=== PATIENT | female | born 1985 ===

== ENCOUNTER → 2017-04-09 | Outpatient (CLI) | payer BC ==
[~2017-04-09] MED LIST: CETI10; VENL75ER
[2017-04-10 12:58] LABS: HPV Genotype 16 Not Detected (NOTDET); HPV Genotype 18 Not Detected (NOTDET)
[2017-04-11 17:16] LABS: HPV High Risk Other Not Detected (NOTDET)
== END ==
LOC: LAB 11:44
PROVIDERS: Advanced Practice Midwife
DX: Z01.419 Encounter for gynecological examination (general) (routine) without abnormal findings (principal)
CPT/HCPCS: 87624; G0123

== ENCOUNTER → 2018-06-25 | Outpatient (CLI) | payer BC ==
[2018-06-28 01:10] LABS: CHLAMYDIA TRACHOMATIS, NAA Negative (Negative); NEISSERIA GONORRHOEAE, NAA Negative (Negative)
== END | disposition home or self-care (01) ==
LOC: LAB SHORT 14:34 → LAB 14:34
PROVIDERS: Advanced Practice Midwife
DX: Z11.3 Encounter for screening for infections with a predominantly sexual mode of transmission (principal)
CPT/HCPCS: 87491; 87591

== ENCOUNTER → 2018-11-28 | Outpatient (CLI) | payer BC ==
[~2018-11-28] MED LIST changes: +Aspir 8181 MG; +CLARITIN10 MG; +IBUP400 PO; +IRON150C; +PRENATAL TABLE1 EAC2; +Prozac20 MG
== END ==
LOC: LAB SHORT 18:02 → LAB 18:02
DX: Z34.00 Encounter for supervision of normal first pregnancy, unspecified trimester (principal)
CPT/HCPCS: 87081; 87653

== ENCOUNTER 2018-12-20 04:50 | Inpatient (IN) | payer BC ==
[~2018-12-20] VITALS: Ht 170.2 cm; Wt 90.9 kg
[~2018-12-20 04:50] MED LIST changes: -Aspir 8181 MG; -CLARITIN10 MG; -IBUP400 PO; -IRON150C; -PRENATAL TABLE1 EAC2; -Prozac20 MG
[2018-12-20] MEDS ORDERED: PRENATAL TABLE1 EAC2 (05:34)
[2018-12-20] MEDS ORDERED: CLARITIN10 MG (05:34)
[2018-12-20] MEDS ORDERED: Prozac20 MG (05:34)
[2018-12-20] MEDS ORDERED: IRON150C (05:35)
[2018-12-20] MEDS ORDERED: Aspir 8181 MG (05:35)
[2018-12-20 05:50] LABS: BASOPHILS ABSOLUTE AUTO 0.02 K/mm3 (0.00-0.23); BASOPHILS PERCENT AUTO 0 % (0-2); EOSINOPHILS ABSOLUTE AUTO 0.07 K/mm3 (0.00-0.68); EOSINOPHILS PERCENT AUTO 1 % (0-6); Hematocrit 33.4 % (33.0-51.0); Hemoglobin 11.2 g/dL (11.5-16.0); IMMATURE GRAN ABSOLUTE AUTO 0.04 K/mm3 (0.00-0.10); IMMATURE GRAN PERCENT AUTO 1 % (0-1); LYMPHOCYTES ABSOLUTE AUTO 2.53 K/mm3 (0.84-5.20); LYMPHOCYTES PERCENT AUTO 29 % (21-46); MONOCYTES ABSOLUTE AUTO 0.69 K/mm3 (0.16-1.47); MONOCYTES PERCENT AUTO 8 % (4-13); Mean Corpuscular HGB 28.7 pg (26.0-34.0); Mean Corpuscular HGB Conc 33.5 g/dL (31.5-36.5); Mean Corpuscular Volume 86 fL (80-100); Mean Platelet Volume 10.9 fL (9.1-12.4); NEUTROPHILS ABSOLUTE AUTO 5.53 K/mm3 (1.96-9.15); NEUTROPHILS PERCENT AUTO 62 % (41-73); Platelet Count 276 K/mm3 (150-400); RDW Coefficient Variation 12.6 % (11.7-14.2); RDW Standard Deviation 39.1 fL (35.1-46.3); White Blood Cell Count 8.88 K/mm3 (4.00-11.30)
[2018-12-20 09:11] LABS: Alanine Aminotransfer (ALT/SGP 19 U/L (12-78); Albumin, Blood 2.6 g/dL (3.4-5.0); Albumin/Globulin Ratio 0.6 (0.8-1.8); Alk Phos 125 U/L (50-136); Anion Gap 12 mmol/L (6-16); Aspartate Aminotrans (AST/SGOT 18 U/L (12-37); Bilirubin, Total 0.3 mg/dL (0.1-1.0); Blood Urea Nitrogen 6 mg/dL (8-24); Bun/Creatinine Ratio 11.8 (12.0-20.0); CO2, Blood 22 mmol/L (21-32); Calcium, Blood 8.9 mg/dL (8.5-10.1); Chloride, Blood 105 mmol/L (98-108); Creatinine, Blood 0.51 mg/dL (0.40-1.00); Globulin, Blood 4.2 g/dL (2.2-4.0); Glomerular Filtration Rate >60 (60-); Glucose, Blood 79 mg/dL (70-99); Potassium, Blood 3.7 mmol/L (3.5-5.5); Sodium, Blood 139 mmol/L (136-145); Total Protein, Blood 6.8 g/dL (6.4-8.2)
--- NOTE | 2018-12-21 00:42 | NUR ---
ASSUMED CARE OF PT FROM CHELSEA ALBRIGHT AT 0030. ROUNDING DONE AT 0040 AND PT SLEEPING, NOTIFIED FATHER OF RN CHANGE AND TO CALL IF ANY QUESTIONS/CONCERNS.
[2018-12-21 05:52] LABS: Hematocrit 23.6 % (33.0-51.0); Hemoglobin 7.8 g/dL (11.5-16.0); Mean Corpuscular HGB 28.4 pg (26.0-34.0); Mean Corpuscular HGB Conc 33.1 g/dL (31.5-36.5); Mean Corpuscular Volume 86 fL (80-100); Mean Platelet Volume 10.7 fL (9.1-12.4); Platelet Count 236 K/mm3 (150-400); RDW Coefficient Variation 12.9 % (11.7-14.2); Red Blood Cell Count 2.75 M/mm3 (3.80-5.20); White Blood Cell Count 10.42 K/mm3 (4.00-11.30)
[2018-12-21] MEDS ORDERED: IBUP400 PO (17:17)
--- NOTE | 2018-12-21 17:59 | NUR ---
DISCHARGED: PT AND S.O RECEIVED WRITTEN AND VERBAL DISCHARGE INSTRUCTIONS. BOTH VERBALIZED UNDERSTANDING. BELONGINGS TAKEN TO PERSONAL CAR. WRITTEN RX FOR MOTRIN AND NEWMANS OINT GIVEN TO PT. NO MMR GIVEN TODAY. WILL RECOMMEND MMR AT [facility] APPT ON 12/23/18. PT IN STABLE CONDITION AMBULATORY TO PRIVATE CAR ACCOMPANIED BY CHELSEA
== END 2018-12-21 17:35 | disposition home or self-care (01) | DRG 807 ==
LOC: OBS 04:50 → BC 04:53 → OBS 05:07 → BC 05:10
PROVIDERS: ADMIT Advanced Practice Midwife
PROC: 10E0XZZ Delivery of Products of Conception, External Approach (ICD-10-PCS; principal; 2018-12-20)
PROC: 0HQ9XZZ Repair Perineum Skin, External Approach (ICD-10-PCS; 2018-12-20)
PROC: 10907ZC Drainage of Amniotic Fluid, Therapeutic from Products of Conception, Via Natural or Artificial Opening (ICD-10-PCS; 2018-12-20)
DX: O99.344 Other mental disorders complicating childbirth (principal); Z37.0 Single live birth; O13.4 Gestational [pregnancy-induced] hypertension without significant proteinuria, complicating childbirth; O70.0 First degree perineal laceration during delivery; Z3A.39 39 weeks gestation of pregnancy; F32.9 Major depressive disorder, single episode, unspecified; Z88.0 Allergy status to penicillin; Z88.8 Allergy status to other drugs, medicaments and biological substances; Z87.891 Personal history of nicotine dependence; Z79.82 Long term (current) use of aspirin; Z79.899 Other long term (current) drug therapy
CPT/HCPCS: 36415; 80053; 85025; 85027; J1885; J2001; J2405; J2590; J3010; J7120

== ENCOUNTER → 2020-08-23 | Outpatient (CLI) | payer BC ==
[~2020-08-23] MED LIST changes: +Aspir 8181 MG; +CLARITIN10 MG; +IBUP400 PO; +IRON150C; +PRENATAL TABLE1 EAC2; +Prozac20 MG
[2020-08-25 14:12] LABS: HPV 16 Negative (Negative); HPV 18 Negative (Negative); HPV OTHER HR TYPES Negative (Negative)
== END ==
LOC: LAB 16:53 → LAB SHORT 16:53
PROVIDERS: Family Medicine
DX: Z01.419 Encounter for gynecological examination (general) (routine) without abnormal findings (principal); Z88.1 Allergy status to other antibiotic agents; Z88.0 Allergy status to penicillin
CPT/HCPCS: 87624; G0123

== ENCOUNTER → 2024-10-30 | Outpatient (CLI) | payer OTHER ==
[2024-11-11 09:23] LABS: HPV HIGH RISK BY TMA Not Detected; HPV SOURCE Cervical
== END ==
LOC: LAB SHORT 18:32 → LAB 18:32
PROVIDERS: Obstetrics & Gynecology
DX: Z01.419 Encounter for gynecological examination (general) (routine) without abnormal findings (principal)
CPT/HCPCS: 87624; G0123